=== PATIENT | female | born 1965 | race Caucasian/White ===

== ENCOUNTER 2016-11-22 16:54 | Emergency (ER) | payer SELFPAY ==
[2016-11-22 17:45] LABS: ABSOLUTE BASOPHILS # (AUTO) 0.1 10^3/uL (0.0-0.2); ABSOLUTE EOSINOPHILS # (AUTO) 0.1 10^3/uL (0.0-0.6); ABSOLUTE LYMPHOCYTES (AUTO) 2.4 10^3/uL (0.5-4.7); ABSOLUTE MONOCYTES (AUTO) 0.4 10^3/uL (0.1-1.4); ABSOLUTE NEUT (AUTO) 5.3 10^3/uL (1.7-8.2); BASOPHILS % (AUTO) 0.8 % (0-2); EOSINOPHILS % (AUTO) 1.3 % (0-6); HEMATOCRIT 39.1 % (36.0-47.0); HEMOGLOBIN 13.3 g/dL (12.0-15.5); HGB HCT DIFFERENCE 0.8; MEAN CORPUSCULAR HEMOGLOBIN 31.4 pg (27.0-33.4); MEAN CORPUSCULAR HGB CONC 33.9 g/dL (32.0-36.0); MEAN CORPUSCULAR VOLUME 93 fl (80-97); MONOCYTES % (AUTO) 4.9 % (3-13); RED BLOOD COUNT 4.22 10^6/uL (3.72-5.28); RED CELL DISTRIBUTION WIDTH 14.7 % (11.5-14.0); WHITE BLOOD COUNT 8.2 10^3/uL (4.0-10.5)
[2016-11-22 18:00] LABS: APPEARANCE,URINE SLIGHTLY-CLOUDY; BILIRUBIN,URINE NEGATIVE (NEGATIVE); GLUCOSE, URINE NEGATIVE (NEGATIVE); KETONES,URINE NEGATIVE (NEGATIVE); LEUKOCYTE ESTERASE,URINE SMALL (NEGATIVE); NITRITE,URINE NEGATIVE (NEGATIVE); PROTEIN,URINE 30 mg/dL (NEGATIVE); URINE SPECIFIC GRAVITY 1.006; UROBILINOGEN,URINE NEGATIVE mg/dL (<2.0)
[2016-11-22 18:03] LABS: ALANINE AMINOTRANSFERASE 25 U/L (9-52); ALBUMIN 4.6 g/dL (3.5-5.0); ALKALINE PHOSPHATASE 99 U/L (38-126); ANION GAP 14 (5-19); ASPARTATE AMINO TRANSFERASE 19 U/L (14-36); BILIRUBIN,DIRECT 0.2 mg/dL (0.0-0.4); BILIRUBIN,TOTAL 0.6 mg/dL (0.2-1.3); BLOOD UREA NITROGEN 8 mg/dL (7-20); CARBON DIOXIDE 23 mmol/L (22-30); CHLORIDE 106 mmol/L (98-107); CREATININE RESULT 0.66 mg/dL (0.52-1.25); GLUCOSE 105 mg/dL (75-110); SODIUM 143.1 mmol/L (137-145); TOTAL PROTEIN 7.4 g/dL (6.3-8.2)
[2016-11-22 18:07] LABS: URINE BARBITURATES SCREEN NEGATIVE; URINE METHADONE SCREEN NEGATIVE; URINE OPIATES LOW NEGATIVE; URINE PHENCYCLIDINE SCREEN NEGATIVE
[2016-11-22 18:17] LABS: ALCOHOL < 10 mg/dL (NONE DETECTED)
[2016-11-22 18:19] LABS: CALCIUM 12.5 mg/dL (8.4-10.2)
[2016-11-22] MEDS ORDERED: NORMAL SALINE 1000 ML 1,000 ML IV ONE (18:21)
--- NOTE | 2016-11-22 20:59 | ER Document Report ---
ED General - General Chief Complaint: Psych Problem Stated Complaint: OBJECT GROWING FROM ARM Cannot obtain history due to: Mentally challenged Notes: Patient is a 51-year-old woman with ongoing tobacco use, no known past medical history who presents with concerns of a bird sitting inside her left upper extremity and apparently "laying in a" 3 days ago. She was seen in an outside emergency department at that time and apparently diagnosed with anxiety and discharged home. States she became very concerned today when she for unclear reasons became concerned that a bird was living inside her left upper extremity. Her friend who is with her the bedside states that she has never had similar symptoms in the past and she has known her for 29 years. Her friend reports that the patient has seemed increasingly paranoid over the last several days in particular today. She states she called her stating that somebody climbing on a roof and the pupil had broken into her home. Patient has no known psychiatric history in the past. She is not currently taking any psychiatric medications. She denies any drug or alcohol use. And eyes any additional complaints at this time. History is otherwise somewhat limited secondary to patient's paranoia and delusions. TRAVEL OUTSIDE OF THE [place] IN LAST 30 DAYS: No Past Medical History - General Information source: Patient - Social History Smoking Status: Current Every Day Smoker Chew tobacco use (# tins/day): No Frequency of alcohol use: None Drug Abuse: None Lives with: Spouse/Significant other Family History: Reviewed & Not Pertinent Review of Systems - Review of Systems Notes: Constitutional: Negative for fever. HENT: Negative for sore throat. Eyes: Negative for visual changes. Cardiovascular: Negative for chest pain. Respiratory: Negative for shortness of breath. Gastrointestinal: Negative for abdominal pain, vomiting or diarrhea. Genitourinary: Negative for dysuria. Musculoskeletal: Negative for back pain. Skin: Negative for rash. Neurological: Negative for headaches, weakness or numbness. 10 point ROS negative except as marked above and in HPI. Physical Exam - Vital signs Vitals: Resp BP Pulse Ox 17 121/85 99 11/22/16 17:15 11/22/16 17:15 11/22/16 17:15 Interpretation: Normal Notes: PHYSICAL EXAMINATION: GENERAL: Well-appearing, well-nourished and in no acute distress. HEAD: Atraumatic, normocephalic. EYES: Pupils equal round and reactive to light, extraocular movements intact, sclera anicteric, conjunctiva are normal. ENT: nares patent, oropharynx clear without exudates. Moist mucous membranes. NECK: Normal range of motion, supple without lymphadenopathy LUNGS: Breath sounds clear to auscultation bilaterally and equal. No wheezes rales or rhonchi. HEART: Regular rate and rhythm without murmurs ABDOMEN: Soft, nontender, normoactive bowel sounds. No guarding, no rebound. No masses appreciated. EXTREMITIES: Normal range of motion, no pitting or edema. No cyanosis. NEUROLOGICAL: No focal neurological deficits. Moves all extremities spontaneously and on command. PSYCH: Paranoid, picking at her left upper extremity SKIN: Warm, Dry, normal turgor, no rashes or lesions noted. Course - Re-evaluation Re-evalutation: 11/22/16 20:57 Patient presents acutely psychotic, convinced that there is a bird living in her right upper extremity and that she laid an egg earlier this week. She is highly paranoid and believes that people are breaking into her home and were climbing on the top of her roof today. Physical examination is remarkable only for slightly cachectic woman in no acute distress. Her laboratories show mild hypercalcemia but are otherwise unremarkable. Tox screen is normal and she denies any drug use. Patient has no prior psychotic history and it would be atypical for her to develop schizophrenia at this stage of life. Will therefore proceed with CT with contrast of the head to evaluate for intracranial mass lesions could prompt some of the symptoms. I do not suspect an acute meningitis or encephalitis given absence of leukocytosis, tachycardia, or fever. Likely she is not complaining of any headache or neck pain. Will therefore defer lumbar puncture at this time. 11/23/16 02:30 CT imaging with contrast does demonstrate a chronic left MCA territory distribution with temporal lobe encephalomalacia but this is not an acute finding. Chest x-ray clear. Patient has remained somewhat paranoid, convinced that there is a bird in her arm and continuously asking for imaging of her upper extremity to evaluate for this. She has been given a small dose of Haldol and has now been sleeping for the past several hours. At this point she is medically cleared for evaluation by psychiatry in the morning. - Vital Signs Vital signs: Temp Pulse Resp BP Pulse Ox 10 L 121/85 99 11/22/16 17:16 11/22/16 17:15 11/22/16 17:16 - Laboratory Result Diagrams: 11/22/16 17:15 11/22/16 17:15 Laboratory results interpreted by me: 11/22/16 11/22/16 11/22/16 17:15 17:15 17:20 RDW 14.7 H Calcium 12.5 H* Urine Protein 30 H Urine Blood MODERATE H Ur Leukocyte Esterase SMALL H Salicylates < 1.0 L Acetaminophen < 10 L - Diagnostic Test Radiology reviewed: Reports reviewed - EKG Interpretation by Me Additional EKG results interpreted by me: 11/23/16 02:31 Normal sinus rhythm. Rate 92. No ST elevations or depressions. QTC is 426. Discharge - Discharge Clinical Impression: Paranoia, Delusions Condition: Fair Disposition: PSYCH HOSP/UNIT
[2016-11-22] MEDS ORDERED: HALOPERIDOL LACTATE INJ 5 MG/1 ML VIAL IV ONE (23:39)
[2016-11-23 06:13] LABS: ANION GAP 10 (5-19); BLOOD UREA NITROGEN 8 mg/dL (7-20); CALCIUM 11.9 mg/dL (8.4-10.2); CARBON DIOXIDE 24 mmol/L (22-30); CHLORIDE 111 mmol/L (98-107); CREATININE RESULT 0.58 mg/dL (0.52-1.25); GLUCOSE 94 mg/dL (75-110); POTASSIUM 4.1 mmol/L (3.6-5.0); SODIUM 144.5 mmol/L (137-145)
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
--- NOTE | 2016-11-23 11:32 | ER Document Report ---
Doctor's Note Notes: 11/23/16 11:30 Rounds: Chart reviewed and patient interviewed. A friend or relative is at the bedside with the patient. Patient is being evaluated for an acute psychosis with paranoia and delusions. All of her lab studies were normal except her calcium level was high at 12.5 and repeated at 11.9. The person at the bedside with the patient says that she's had a known elevated calcium level for many years. I asked the patient and this person to be sure that she sees a primary care physician to follow this calcium elevation for any complications. They agree and understand. All other lab studies essentially normal. Vital signs are all essentially normal. Patient appears to be medically stable for transfer or discharge.
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
[2016-11-23 16:57] VITALS: BP 134/92
--- NOTE | 2016-11-23 17:04 | EKG REPORT ---
SEVERITY:- NORMAL ECG - SINUS RHYTHM : Confirmed by: Cathy Arreaga MD 23-Nov-2016 17:03:48
== END 2016-11-23 17:09 | disposition home or self-care (01) ==
LOC: ER 16:54
DX: F22 Delusional disorders (principal); F91.9 Conduct disorder, unspecified; F17.200 Nicotine dependence, unspecified, uncomplicated
CPT/HCPCS: 93005; 99285; 96361; 96374; 36415; 80307 ×4; 85025; 80048; 80053; 81001; 71010; 70460; 93010; J1630; J7030

== ENCOUNTER 2019-12-05 23:31 | Inpatient (IN) | payer SELFPAY ==
[2019-12-05] MEDS ORDERED: NORMAL SALINE 500 ML IV ONE (23:46)
--- NOTE | 2019-12-05 23:47 | ER Document Report ---
ED General - General Chief Complaint: General Weakness Stated Complaint: GENERALIZED WEAKNESS Time Seen by Provider: 12/05/19 23:38 Notes: Patient is a 54-year-old female that comes from home for chief complaint of generalized weakness. EMS states that she lives at home with her who called the ambulance because she was acting weaker today. No other significant history was given including fever, vomiting, chest pain, coughing, etc. 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 No other medical history is reported to me except that she is a smoker. Patient is unable to answer any questions in a meaningful fashion. She does state "no" and shakes her head when I ask if she hurts anywhere. Patient is noted to have stool on her pants and socks. TRAVEL OUTSIDE OF THE [place] IN LAST 30 DAYS: No - Related Data Allergies/Adverse Reactions: No Known Allergies Allergy (Verified 11/23/16 09:47) Past Medical History - General Information source: Patient, Emergency Med Personnel - Social History Smoking Status: Current Every Day Smoker Frequency of alcohol use: None Drug Abuse: None Lives with: Spouse/Significant other Family History: Reviewed & Not Pertinent Review of Systems - Review of Systems Constitutional: See HPI EENT: No symptoms reported Cardiovascular: No symptoms reported Respiratory: No symptoms reported Gastrointestinal: No symptoms reported Genitourinary: No symptoms reported Female Genitourinary: No symptoms reported Musculoskeletal: No symptoms reported Skin: No symptoms reported Hematologic/Lymphatic: No symptoms reported Neurological/Psychological: No symptoms reported Physical Exam - Vital signs Vitals: Temp 97.8 F 12/05/19 23:40 - Notes Notes: GENERAL: Patient is awake and does not appear to be in pain but she is very cachectic and ill-appearing HEAD: Normocephalic, atraumatic. EYES: Pupils equal, round, and reactive to light. Extraocular movements intact. ENT: Oral mucosa parched with parched lips and tongue, tongue midline. Oropharynx unremarkable. Airway patent. N NECK: Full range of motion. Supple. Trachea midline. No lymphadenopathy. LUNGS: Clear to auscultation bilaterally, no wheezes, rales, or rhonchi. No respiratory distress. Non-tender chest wall. HEART: Tachycardia, normal rhythm, no murmur ABDOMEN: Soft, non-tender. Non-distended. Bowel sounds present in all 4 quadrants. GENITOURINARY: Groin and general genitourinary erythematous rash consistent with yeast and some skin breakdown, otherwise unremarkable EXTREMITIES: Moves all 4 extremities spontaneously. No edema, normal radial and dorsalis pedis pulses bilaterally. No cyanosis. BACK: no cervical, thoracic, lumbar midline tenderness. No saddle anesthesia, normal distal neurovascular exam. Moves all extremities in full range of motion. NEUROLOGICAL: Alert but not oriented or able to answer questions. Cranial nerves II through XII grossly intact. Strength 5/5 in all extremities. SKIN: Pale Course - Re-evaluation Re-evalutation: Patient very cachectic, appears very malnourished and dehydrated, however she does not appear to be in distress. Patient is unable to give any meaningful history. Patient is very dirty with what appears to be feces on her pants and socks. Patient is tachycardic. Starting IV fluids, work-up pending. 12/06/19 02:24 I have been at the patient's bedside continually for approximately 20 minutes now. Patient was noted by nursing staff suddenly to stop responding and then started jerking movements and became tachycardic, she had her eyes open and had rhythmic muscular contractions consistent with a seizure. Patient is not responding to any stimuli for me, which is an acute change. Patient does not have a reported history of seizures. Patient was initially given 1 mg Ativan, however seizure persisted, she was given an additional 0.5 mg of Ativan, seizure continued to persist, patient was given 2 mg of Versed and Dr. Espinosa was at bedside, 500 mg of Keppra was hung, patient finally stopped seizure activity after a total of 20 minutes. Patient is maintaining regular respirations and is not hypoxic. Patient is now only mildly tachycardic as she was previously. CT of the head is pending, giving an additional 500 g bolus of Keppra. CBC unremarkable, chemistry shows hypercalcemia at 12, acute renal insuffici ency, urinalysis indicates dehydration with casts but does not overtly appear infected. Chest x-ray is unremarkable. CAT scan was obtained of the head and shows encephalomalacia but no acute findings. I am still uncertain why the patient had a seizure. I spoke with Dr. Espinosa, he recommends ICU admission. I spoke with Pedro Lema SUGAR BOILER compensation analyst, he came and evaluated the patient. We spoke with , patient has no additional medications or history reported. Patient accepted to the ICU. - Vital Signs Vital signs: Temp Pulse Resp BP Pulse Ox 97.8 F 25 H 140/113 H 100 12/05/19 23:40 12/06/19 00:15 12/06/19 00:15 12/06/19 00:15 - Laboratory Result Diagrams: 12/06/19 00:00 12/06/19 00:00 Laboratory results interpreted by me: 12/05/19 12/06/19 12/06/19 23:47 00:00 00:00 RBC 5.36 H Hgb 17.3 H Hct 49.4 H RDW 15.0 H Harmon % (Auto) 14.1 H Carbon Dioxide 21 L BUN 44 H Creatinine 1.39 H Est GFR ( Amer) 48 L Est GFR (MDRD) Non-Af 40 L Glucose 129 H POC Glucose 129 H Lactic Acid Calcium 12.0 H* Direct Bilirubin 0.6 H Albumin 3.2 L Urine Protein Urine Blood Urine Bilirubin Urine Urobilinogen 12/06/19 12/06/19 00:16 03:36 RBC Hgb Hct RDW Harmon % (Auto) Carbon Dioxide BUN Creatinine Est GFR ( Amer) Est GFR (MDRD) Non-Af Glucose POC Glucose Lactic Acid 6.4 H Calcium Direct Bilirubin Albumin Urine Protein 30 H Urine Blood SMALL H Urine Bilirubin SMALL H Urine Urobilinogen 4.0 H Critical Care Note - Critical Care Note Total time excluding time spent on procedures (mins): 40 - Long-lasting seizure, hypercalcemia, malnourishment, dehydration Comments: Please allow 40 minutes of critical care time for evaluation and management of the patient required treatment for malnourishment, dehydration, and acute seizure that lasted for 20 minutes. Multiple interventions including different benzodiazepines, large amount of time spent persistently at bedside. Time spent discussing with family and career information specialist, time spent admitting to the ICU. Discharge - Discharge Clinical Impression: Seizure, Hypercalcemia, Weakness Malnutrition Qualifiers: Malnutrition type: unspecified type Qualified Code(s): E46 - Unspecified protein-calorie malnutrition Condition: Fair Disposition: ADMITTED INPATIENT Admitting Provider: Doyle (Remote Control Assembler) - with Pedro Lema NP Unit Admitted: ICU
[2019-12-06 00:42] LABS: ABSOLUTE LYMPHOCYTES (AUTO) 0.8 10^3/uL (0.5-4.7); ABSOLUTE MONOCYTES (AUTO) 0.6 10^3/uL (0.1-1.4); ABSOLUTE NEUT (AUTO) 2.9 10^3/uL (1.7-8.2); HEMATOCRIT 49.4 % (36.0-47.0); HEMOGLOBIN 17.3 g/dL (12.0-15.5); LYMPHOCYTES % (AUTO) 18.5 % (13-45); MEAN CORPUSCULAR HEMOGLOBIN 32.2 pg (27.0-33.4); MEAN CORPUSCULAR VOLUME 92 fl (80-97); MONOCYTES % (AUTO) 14.1 % (3-13); PLATELET COUNT 277 10^3/uL (150-450); RED BLOOD COUNT 5.36 10^6/uL (3.72-5.28); SEGMENTED NEUTROPHILS % (AUTO) 67.4 % (42-78); TOTAL CELLS COUNTED % (AUTO) 100 %; WHITE BLOOD COUNT 4.3 10^3/uL (4.0-10.5)
[2019-12-06 01:09] LABS: APPEARANCE,URINE CLOUDY; BILIRUBIN,URINE SMALL (NEGATIVE); CALCIUM OXALATE CRYSTALS,URINE TOO NUMEROUS TO CNT /HPF; COLOR,URINE AMBER; GLUCOSE, URINE NEGATIVE (NEGATIVE); KETONES,URINE NEGATIVE (NEGATIVE); LEUKOCYTE ESTERASE,URINE NEGATIVE (NEGATIVE); NITRITE,URINE NEGATIVE (NEGATIVE); PROTEIN,URINE 30 mg/dL (NEGATIVE)
--- NOTE | 2019-12-06 01:09 | RADIOLOGY REPORT (SQ) ---
CLINICAL INDICATION: generalized weakness. TECHNIQUE: A single portable AP view was obtained of the chest at 0038 hours. COMPARISON: November 22, 2016. FINDINGS: The cardiomediastinal silhouette is normal. The lungs are grossly clear. No evidence of effusion or pneumothorax. The visualized bones are unremarkable. Chronic parenchymal lung change IMPRESSION: No evidence of active intrathoracic disease.
[2019-12-06 01:14] LABS: ALBUMIN 3.2 g/dL (3.5-5.0); ALKALINE PHOSPHATASE 79 U/L (38-126); ANION GAP 13 (5-19); ASPARTATE AMINO TRANSFERASE 23 U/L (14-36); BILIRUBIN,DIRECT 0.6 mg/dL (0.0-0.4); BILIRUBIN,TOTAL 1.3 mg/dL (0.2-1.3); BLOOD UREA NITROGEN 44 mg/dL (7-20); CARBON DIOXIDE 21 mmol/L (22-30); CHLORIDE 103 mmol/L (98-107); GLUCOSE 129 mg/dL (75-110); POTASSIUM 4.2 mmol/L (3.6-5.0); TOTAL PROTEIN 6.7 g/dL (6.3-8.2)
[2019-12-06] MEDS ORDERED: NORMAL SALINE 500 ML IV ONE ×2 (01:31→02:33)
[2019-12-06] MEDS ORDERED: LORAZEPAM INJ 2 MG/1 ML VIAL IV ONE ×3 (01:58→02:10)
[2019-12-06] MEDS ORDERED: LEVETIRACETAM 500 MG/NACL-ISO 500 MG/100 ML RTUPB IV ONE ×2 (02:05→02:24)
[2019-12-06] MEDS ORDERED: MIDAZOLAM 2 MG/2 ML INJ IV ONE ×2 (02:11→02:24)
[2019-12-06 02:34] LABS: VENOUS BLOOD BASE EXCESS -1.9 mmol/L; VENOUS BLOOD HCO3 23.7 mmol/L (20-32); VENOUS BLOOD PCO2 43.8 mmHg (35-63); VENOUS BLOOD PH 7.35 (7.30-7.42)
[2019-12-06 02:50] LABS: ALCOHOL < 10 mg/dL (NONE DETECTED)
--- NOTE | 2019-12-06 03:47 | RADIOLOGY REPORT (SQ) ---
CT head without contrast on 12/06/2019 at 2:58 AM CLINICAL INDICATION: New onset seizure TECHNIQUE: Multiple axial images are obtained throughout the head without the administration of contrast. This exam was performed according to our departmental dose-optimization program, which includes automated exposure control, adjustment of the mA and/or kV according to patient size and/or use of iterative reconstruction technique. Total DLP is 963.96 mGy*cm. COMPARISON: 11/22/2016 FINDINGS: There is stable chronic encephalomalacia in the left temporal lobe that may be related to an old infarct. There is mild low-density in the periventricular white matter consistent with mild chronic small vessel ischemic changes. There is no hydrocephalus. There is no CT evidence of acute infarct. There is no hemorrhage. There are no abnormal extra-axial fluid collections. There is no mass, mass effect or midline shift. No bony abnormality is noted. IMPRESSION: Stable examination with no acute intracranial abnormality.
[2019-12-06 04:18] LABS: URINE AMPHETAMINES SCREEN NEGATIVE; URINE BARBITURATES SCREEN NEGATIVE; URINE BENZODIAZEPINES SCREEN NEGATIVE; URINE COCAINE SCREEN NEGATIVE; URINE MARIJUANA (THC) SCREEN NEGATIVE; URINE METHADONE SCREEN NEGATIVE; URINE PHENCYCLIDINE SCREEN NEGATIVE
[2019-12-06] MEDS ORDERED: THIAMINE HCL 100 MG, FOLIC ACID 1 MG in NORMAL SALINE 250 ML IV ONE (04:39)
[2019-12-06] MEDS ORDERED: THIAMINE HCL 200 MG in NORMAL SALINE 50 ML IV ONE ×2 (05:14→11:00)
[2019-12-06] MEDS ORDERED: RINGERS SOLUTION,LACTATED 1,000 ML IV PRN (06:02)
--- NOTE | 2019-12-06 07:03 | CRITICAL CARE ADMISSION REPORT ---
HPI Date:: 12/06/19 Time:: 04:45 Reason for ICU Reason:: Seizure HPI: Mrs Leger is a 54-year-old female with only reported past medical history of kamille West Nile Virus 6 yrs ago which has left her mostly bedbound with encephalopathy who presented to [facility] with a chief complaint of generalized weakness per the . EMS states that she lives at home with her who called the ambulance because she was acting weaker today. Husban d denies fever, vomiting, chest pain, SOB, coughing, etc. Patient reportedly has limited mobility only ambulating to the bathroom and is minimally communicative ever since her contraction of WN virus. Hx of smoking. Before experiencing a grand mal seizure in the ED, Mrs Leger was stating "no" and shaking her head when asked if she hurts anywhere. She also presented with fecal incontinence. ICU team was consulted for the seizure. She will be admitted to ICU to monitor for an additional seizure and an EEG will be obtained. To note, she has received Ativan, Versed, and Keppra to abort her seizure which reportedly lasted 20 minutes. No Hx of epilepsy or seizure per . History obtained from:: medical record, ER physician, - Diagnosis/Plan (1) Seizure Plan: No Hx of epilepsy or a single seizure. No electrolyte derangements to explain seizure. One possibility given malnourishment and recent poor PO intake could be Wernicke's syndrome. Will check vit B1 level. Start high-dose Thiamine 200 mg q6h for now and follow up level. Discussed with SPECIAL POPULATION PARAPROFESSIONAL to obtain level first before Thiamine administra tion. Viral meningitis is also on the differential for potential etiology. May need a LP later today. Will hold DVT prophylaxis for now until it is decided. Seizure precautions, elevate HOB, monitor airway protection. Benzos prn if seizes again. (2) Weakness Is this a current diagnosis for this admission?: Yes Plan: Optimize nutritional status as able. Will wait until later this morning to see if mental status improves and will eat. If not, may need DHT for enteral nutrition supplementation. Physical therapy eval when appropriate. (3) KRISTIN (acute kidney injury) Is this a current diagnosis for this admission?: Yes Plan: Hydration. Then recheck BMP. Continue weldon for strict I&O. (4) Dehydration Is this a current diagnosis for this admission?: Yes Plan: Start maintenance IV fluids. (5) Elevated lactic acid level Is this a current diagnosis for this admission?: Yes Plan: Does not fit sepsis picture at the moment, though patient is dehydrated and malnourished. One possibility could be Thiamine deficiency. Will check B1 level. Lactic level was also checked post-seizure. Speaking of which, will obtain CK level to ensure no rhabdomyolysis. (6) Protein-calorie malnutrition Qualifiers: Protein-calorie malnutrition severity: unspecified severity Qualified Code(s): E46 - Unspecified protein-calorie malnutrition Is this a current diagnosis for this admission?: Yes Plan: Assess for PO diet later today vs enteral nutrition needs. May need electronic parts designer consult. (7) Hypercalcemia Is this a current diagnosis for this admission?: Yes Plan: Chronic condition as far back as 2016 that I can tell. Malignancy? (8) Incontinence associated dermatitis Is this a current diagnosis for this admission?: Yes Plan: Keep perineum clean, barrier cream. Weldon for now. Frequent checks incontinent BM's with cleansing. (9) History of West Nile virus (WNV) infection Is this a current diagnosis for this admission?: Yes Plan: History of the infection. No current plan. Past Medical History Past Medical History: denies with exception of West Nile Virus 6 yrs ago Social/Family History - Social History Lives with: Spouse/Significant other Smoking Status: Current Every Day Smoker - Medication/Allergies Home Medications: No Home Medications 11/23/16 Allergies/Adverse Reactions: No Known Allergies Allergy (Verified 11/23/16 09:47) Review of Systems ROS unobtainable: Due to mental status Physical Exam Vital Signs: Temp Pulse Resp BP Pulse Ox 97.8 F 25 H 140/113 H 100 12/05/19 23:40 12/06/19 00:15 12/06/19 00:15 12/06/19 00:15 Intake & Output 12/04/19 12/05/19 12/06/19 06:59 06:59 06:59 Intake Total 1700 Balance 1700 Weight 43.091 kg Weight/Height Weight 43.091 kg General appearance: PRESENT: no acute distress, thin, other - malnourished, emaciated Head exam: PRESENT: atraumatic, normocephalic Eye exam: PRESENT: conjunctiva pink, PERRLA. ABSENT: conjunctival injection, periorbital swelling, scleral icterus Mouth exam: PRESENT: dry mucosa, neck supple, tongue midline Teeth exam: PRESENT: dental caries, poor dentation Throat exam: ABSENT: post pharyngeal erythema Neck exam: ABSENT: JVD, lymphadenopathy, tenderness, tracheal deviation Respiratory exam: PRESENT: clear to auscultation zoraida, symmetrical, unlabored. ABSENT: accessory muscle use Cardiovascular exam: PRESENT: RRR, +S1, +S2. ABSENT: gallop, rubs, systolic mu rmur Vascular exam: PRESENT: normal capillary refill GI/Abdominal exam: PRESENT: hypoactive bowel sounds, soft. ABSENT: distended, tenderness Rectal exam: PRESENT: deferred Gentrourinary exam: PRESENT: indwelling catheter Extremities exam: ABSENT: joint swelling, pedal edema Musculoskeletal exam: PRESENT: normal inspection Neurological exam: PRESENT: other - sedated, though yawns and swallows intermittently Skin exam: PRESENT: dry, other - Incontinence-associated dermatitis to perineum. ABSENT: jaundice Laboratory/Radiographs Laboratory Results: 12/06/19 00:00 12/06/19 00:00 12/06/19 12/06/19 12/06/19 00:00 00:00 00:00 WBC 4.3 RBC 5.36 H Hgb 17.3 H Hct 49.4 H MCV 92 MCH 32.2 MCHC 35.0 RDW 15.0 H Plt Count 277 Seg Neutrophils % 67.4 VBG pH VBG pCO2 VBG HCO3 VBG Base Excess Sodium 137.0 Potassium 4.2 Chloride 103 Carbon Dioxide 21 L Anion Gap 13 BUN 44 H Creatinine 1.39 H Est GFR ( Amer) 48 L Glucose 129 H Lactic Acid Calcium 12.0 H* Magnesium 2.2 Total Bilirubin 1.3 AST 23 Alkaline Phosphatase 79 Total Protein 6.7 Albumin 3.2 L Urine Color Urine Appearance Urine pH Ur Specific [place] Urine Protein Urine Glucose (UA) Urine Ketones Urine Blood Urine Nitrite Ur Leukocyte Esterase Urine WBC (Auto) Urine RBC (Auto) 12/06/19 12/06/19 12/06/19 00:16 02:10 03:36 WBC RBC Hgb Hct MCV MCH MCHC RDW Plt Count Seg Neutrophils % VBG pH 7.35 VBG pCO2 43.8 VBG HCO3 23.7 VBG Base Excess -1.9 Sodium Potassium Chloride Carbon Dioxide Anion Gap BUN Creatinine Est GFR ( Amer) Glucose Lactic Acid 6.4 H Calcium Magnesium Total Bilirubin AST Alkaline Phosphatase Total Protein Albumin Urine Color JAY Urine Appearance CLOUDY Urine pH 5.0 Ur Specific [place] 1.020 Urine Protein 30 H Urine Glucose (UA) NEGATIVE Urine Ketones NEGATIVE Urine Blood SMALL H Urine Nitrite NEGATIVE Ur Leukocyte Esterase NEGATIVE Urine WBC (Auto) 5 Urine RBC (Auto) 12 12/06/19 00:00 Troponin I 0.133 Impressions: Chest X-Ray 12/05/19 23:46 IMPRESSION: No evidence of active intrathoracic disease. Head CT 12/06/19 01:58 IMPRESSION: Stable examination with no acute intracranial abnormality. All labs, radiographs, diagnostic studies and EKGs were personally reviewed: Yes In addition, reports of radiographic and diagnostic studies were read: Yes Critical Time Critical Time (minutes): 65 -: The care of a critically ill patient is dynamic. This note represents a static moment in the admission process. Orders and treatments may be given simultaneously and urgently, and time is not sales and marketing representative of the treatment process. This patient requires Critical Care secondary to life threatening organ or limb dysfunction. Without Critical Care services, the patient is at risk for increased mortality and morbidity.
--- NOTE | 2019-12-06 08:00 | EKG REPORT ---
SEVERITY:- ABNORMAL ECG - SINUS TACHYCARDIA BIATRIAL ABNORMALITIES MINIMAL ST DEPRESSION, DIFFUSE LEADS : Confirmed by: Amado Meza MD 06-Dec-2019 07:59:20
[2019-12-06 08:10] LABS: ANION GAP 10 (5-19); BLOOD UREA NITROGEN 39 mg/dL (7-20); CALCIUM 10.6 mg/dL (8.4-10.2); CARBON DIOXIDE 21 mmol/L (22-30); CHLORIDE 109 mmol/L (98-107); GLUCOSE 107 mg/dL (75-110); POTASSIUM 3.9 mmol/L (3.6-5.0)
[2019-12-06] MEDS ORDERED: POTASSI CL 20 MEQ/50 ML RIDER 20 MEQ/50 ML RTUPB IV SCH (12:30)
[2019-12-06] MEDS: DEXTROSE 5%-1/2 NORMAL SALINE 1,000 ML IV PRN ×2 (13:09→22:26)
--- NOTE | 2019-12-06 14:25 | NEURO WORKBENCH EEG REPORT ---
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 The patient is mostly bedbound and presented to ER with generalized weakness, and while in the ER today had a witness generalized tonic-clonic seizure reportedly lasting 20 minutes for which she was given Ativan, Versed, and Keppra. There is no prior history of epilepsy. The patient also appeared malnourished and dehydrated. This EEG was requested for evaluation of epileptiform activity. EEG Interpretation This EEG was recorded during an inderminate state of consciousness. The backgound EEG showed monotonous diffuse polymorphic 0.5 to 2 Hz delta activity with superimposed 14-18 Hz beta activity. At times, there was a relative paucity of beta activity in the left anterior temporal/frontal region. There were occasional brief runs of Frontal Intermittent Rhythmic Delta Activity (FIRDA) lasting typically about 1-3 seconds. There were periods of global amplitude attenuation lasting a few seconds, but this is not a burst-suppression pattern. There were no apparent spontaneous eye openings or closings, but the alternative energy technician manually opened and closed the patients eyes multiple times. There was no apparent change in the background activity with eye closure, and there was no occipital dominant rhythm present. Photic stimulation was done and minimal photic driving was not noted at lower frequencies. There were very frequent sleep spindles noted, often appearing asymmetric and less prominent or absent in the left frontal region. There was no epileptiform activity (meaning no sharp waves or spikes), and there were no seizures noted. The EKG showed a regular tachycardia rhythm with rates typically in the 125-135 range. EEG Impression This is a markedly abnormal EEG. The diffuse background slowing, periods of global amplitude attenuation, and presence of intermittent FIRDA are consistent with diffuse cerebral dysfunction which is non-specific for etiology. Likely considerations would include toxic-metabolic derangements, effects of sedating medications, or post-ictal state. The asymmetry noted would suggest a structural abnormality in the left anterior temporal/frontal region. There were frequent frontally predominant spindles noted, but this did not appear like a normal stage II sleep EEG due to the lack of other normal sleep architecture. There was no epileptiform activity on this EEG. However, it should be noted that the patient received Ativan, Versed, and Keppra prior to this EEG, all of which could suppress interictal epileptiform activity. Consideration should be given to a repeat EEG in the future after the effects of sedating medications have cleared to evaluate for epileptiform activity. In addition, if there is strong concern for sub-clinical seizure activity then long-term EEG monitoring would be advised or additional repeat routine EEGs if long-term monitoring is not available. INTERPRETING NEUROLOGIST: Cecil Franz MD Board certified by the [place] [employer] in Neurology, Clinical Neurophysiology, and Sleep Medicine [facility]
[2019-12-06 15:51] LABS: ARTERIAL BLOOD H2CO3 0.73 mmol/L (1.05-1.35); ARTERIAL BLOOD O2 SATURATION 98.9 % (94-98); ARTERIAL BLOOD PCO2 24.1 mmHg (35-45); ARTERIAL BLOOD PH 7.47 (7.35-7.45); ARTERIAL BLOOD TOTAL CO2 17.7 mmol/L (21-25)
[2019-12-06 16:02] LABS: ARTERIAL BLOOD FIO2 2L
[2019-12-06] MEDS ORDERED: THIAMINE HCL 500 MG in NORMAL SALINE 250 ML IV SCH (18:00)
[2019-12-06] MEDS ORDERED: LEVETIRACETAM 500 MG/NACL-ISO 500 MG/100 ML RTUPB IV SCH (20:00)
[2019-12-07 01:26] LABS: ARTERIAL BLOOD BASE EXCESS -20.4 mmol/L; ARTERIAL BLOOD H2CO3 0.63 mmol/L (1.05-1.35); ARTERIAL BLOOD HCO3 6.9 mmol/L (20-24); ARTERIAL BLOOD O2 SATURATION 90.2 % (94-98); ARTERIAL BLOOD PO2 73.5 mmHg (80-100); ARTERIAL BLOOD TOTAL CO2 7.5 mmol/L (21-25)
[2019-12-07 01:29] LABS: ARTERIAL BLOOD FIO2 2L
[2019-12-07 01:30] LABS: ARTERIAL BLOOD PH 7.13 (7.35-7.45)
[2019-12-07] MEDS ORDERED: RINGERS SOLUTION,LACTATED 2,000 ML IV ONE ×2 (01:45→02:45)
[2019-12-07] MEDS ORDERED: NOREPINEPHRINE BITARTRATE INJ/PF 4 MG/4 ML SDV IV ONE (02:03)
[2019-12-07] MEDS ORDERED: EPINEPHRINE INJ 1 MG/10 ML DISP.SYRIN ONE ×2 (02:06→03:00)
[2019-12-07] MEDS ORDERED: SODIUM BICARBONATE 8.4% INJ 50 MEQ/50 ML DISP.SYRIN ONE ×3 (02:32→03:00)
[2019-12-07] MEDS ORDERED: VASOPRESSIN INJ 20 UNIT/1 ML VIAL ONE ×2 (02:48→02:49)
[2019-12-07 03:02] LABS: ANION GAP 12 (5-19); BLOOD UREA NITROGEN 33 mg/dL (7-20); CALCIUM 8.8 mg/dL (8.4-10.2); CARBON DIOXIDE 12 mmol/L (22-30); CHLORIDE 114 mmol/L (98-107); GLUCOSE 159 mg/dL (75-110); PHOSPHORUS 3.1 mg/dL (2.5-4.5); POTASSIUM 4.6 mmol/L (3.6-5.0)
[2019-12-07 04:55] VITALS: BP 107/42
--- NOTE | 2019-12-07 09:25 | Death Summary ---
Summary Date : 12/07/19 Time of :: 03:03 Autopsy: No Resuscitation Status: Full Code - Final Diagnosis (1) Seizure Is this a current diagnosis for this admission?: Yes (2) Weakness Is this a current diagnosis for this admission?: Yes (3) KRISTIN (acute kidney injury) Is this a current diagnosis for this admission?: Yes (4) Dehydration Is this a current diagnosis for this admission?: Yes (5) Elevated lactic acid level Is this a current diagnosis for this admission?: Yes (6) Protein-calorie malnutrition Is this a current diagnosis for this admission?: Yes (7) Hypercalcemia Is this a current diagnosis for this admission?: Yes (8) Incontinence associated dermatitis Is this a current diagnosis for this admission?: Yes (9) History of West Nile virus (WNV) infection Is this a current diagnosis for this admission?: Yes Hospital Course:: HPI: Mrs Leger is a 54-year-old female with only 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 EMS states that she lives at home with her who called the ambulance because she was acting weaker today. denies fever, vomiting, chest pain, SOB, coughing, etc. Patient reportedly has limited mobility only ambulating to the bathroom and is minimally communicative ever since her contraction of WN virus. Hx of smoking. Before experiencing a grand mal seizure in the ED, Mrs Leger was stating "no" and shaking her head when asked if she hurts anywhere. She also presented with fecal incontinence. 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 ICU team was consulted for the seizure. She will be admitted to ICU to monitor for an additional seizure and an EEG will be obtained. To note, she has received Ativan, Versed, and Keppra to abort her seizure which reportedly lasted 20 minutes. No Hx of epilepsy or seizure per . Hospital Course: Mr. Villarreal was admitted to the ICU in a post-ictal state and started on thiamine IV while awaiting a send out lab of vitamin B1 given the severity of her chronic malnourishment. An EEG was obtained demonstrating no present epileptiform discharge; however, she had received midazolam, lorazepam, and levetiracetam. To note, this was an abnormal EEG with global cerebral dysfunction. 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 She received IV fluids for hydration with improvement in her KRISTIN as well as her lactate level decreasing. Mrs. Villarreal's mental status never truly improved though she remained able to protect her airway. At approximately 1:10 AM on December 06, I happened to be walking by her room to check on her and noticed tachycardia with a heart rate of 140 and a change in her respiratory pattern now with accessory muscle use. 2L of Ringer's lactate was bolused via pressure bag as her diastolic blood pressure dropped to 19 mm Hg while in the room obtaining an ABG. Her heart rate decreased to 114 with transient improvement in her BP, though her work of breathing remained. The ABG demonstrated metabolic acidosis. Not long after the IV fluid finished, her BP decreased again to SBP 40's for which more fluid was administered along with small doses of Epinephrine IV push with increase in SBP to 70's while I began working on right femoral artery access to determine BP. To note, the right femoral artery was overlying the femoral vein and when I obtained blood return via the needle without an attached syringe, the blood was only slowly dripping instead of a pulsatile fashion. A guide wire was advanced through the needle to assess whether or not the wire was in the artery with a low BP versus the femoral vein. On ultrasound, it appeared the needle went through the lateral wall of the femoral artery and then into the femoral vein. I debated using this for central venous access since I was in the vein, but did not want to dilate the artery if it did indeed pastor the lateral wall of the artery, therefore I removed the wire noticing blood welling up on top of her skin rather quickly for which I do believe the needle had indeed entered the artery (approximately 5 mL EBL). Manual pressure was held to achieve hemostasis and while doing so, the patient's SBP dropped to 40's again for which we administered more Epinephrine IV push and started CPR to circulate the medication. The right femoral area achieved hemostasis and only had a small amount of hematoma present. I then drilled an intraosseus line into each proximal medial tibia for quick central access so more emergency medications and IV fluids could be administered. CPR was administered for 10 minutes without ROSC, patient remained in PEA for which I then called her Giovanni Leger to update him on change in condition and current events transpiring. We continued CPR for an additional 6 minutes when a moderate amount of blood was then noted coming from her airway with [id number] ventilations, likely from traumatic CPR given her frail malnourished state. At this time, a pulse check was performed and was found to be absent again in PEA. To note, Mrs Leger received Vasopressin IV push, Norepinephrine IV infusion, multiple amps of Sodium Bicarb, mulitiple doses of IV push Epinephrine, and 3+ liters of IV crystalloid solution as boluses. Her lactate returned >13, Troponin 0.7, without any evidence of electrolyte abnormalities or renal dysfunction contributing to her cardiac arrest. I ultrasounded the heart demonstrating no cardiac activity. Time of was pronounced at 03:03 AM on 12/07/2019. I then called Dr Kwon and the patient's Giovanni to provide updates. Giovanni came to the hospital and I walked him to the ICU from the ER, allowing him time with his . Presume precipitated by hypovolemic shock as a consequence of post-ictal state from a grand mal seizure in the ED reportedly lasting 20 minutes due to her history of West Nile Virus encephalomalacia versus profound malnourishment.
[2019-12-08] MEDS ORDERED: THIAMINE HCL IV SCH (10:00)
[2019-12-08] MEDS ORDERED: FOLIC ACID IV SCH (10:00)
[2019-12-08] MEDS ORDERED: NORMAL SALINE IV SCH (10:00)
== END 2019-12-07 03:03 | disposition left against medical advice (07) | DRG 101 ==
LOC: ER 23:31 → EH 12-06 05:36 → ICU 12-06 07:02
PROVIDERS: ADMIT Internal Medicine Critical Care Medicine; ATTEND Internal Medicine Critical Care Medicine
DX: G40.409 Other generalized epilepsy and epileptic syndromes, not intractable, without status epilepticus (principal); N17.9 Acute kidney failure, unspecified; E46 Unspecified protein-calorie malnutrition; Z68.1 Body mass index [BMI] 19.9 or less, adult; R57.1 Hypovolemic shock; E86.0 Dehydration; E83.52 Hypercalcemia; L24.89 Irritant contact dermatitis due to other agents; F17.210 Nicotine dependence, cigarettes, uncomplicated; Z74.01 Bed confinement status; Z87.891 Personal history of nicotine dependence; Z87.898 Personal history of other specified conditions
CPT/HCPCS: 36415; 70450; 71045; 80048; 80053; 80307; 81001; 82140; 82550; 82803; 82962; 83605; 83735; 84100; 84145; 84425; 84484; 85025; 87086; 87088; 87186; 92950; 93005; 93010; 95819; 99291; J0171; J1953; J2060; J2250; J3411; J3480; J3490; J7040; J7050; J7120